=== PATIENT | female | born 1940 | race Caucasian/White ===

== ENCOUNTER 2017-12-12 06:52 | Day surgery (SDC) | payer OTHER ==
[~2017-12-12] VITALS: Ht 167.6 cm; Wt 62.6 kg
[~2017-12-12 06:52] MED LIST: Ascorbic Acid,Ester- PO; Coumadin,Jantoven PO; Feosol PO; LO-DOSE ASPIRIN81 M2 PO; Neurontin PO; Percocet 5/325,Endoc PO; celeBREX PO
[2017-12-12 07:41] VITALS: BP 168/101
[2017-12-12] MEDS ORDERED: LORTAB 5-325 M1 EACH PO (14:42)
[2017-12-12 16:00] VITALS: BP 160/94
[2017-12-12 16:55] VITALS: BP 139/77
== END 2017-12-12 17:25 | disposition home or self-care (01) ==
LOC: SDC 06:52 → NUC 09:00 → SDC 17:25 → NUC 12-14 07:00
DX: C50.212 Malignant neoplasm of upper-inner quadrant of left female breast (principal); Z17.0 Estrogen receptor positive status [ER+]; D50.9 Iron deficiency anemia, unspecified; Z87.891 Personal history of nicotine dependence; Z79.82 Long term (current) use of aspirin; Z80.3 Family history of malignant neoplasm of breast
CPT/HCPCS: 78195; 78999; A9541; J0690; J1100; J1170; J1885; J2405; S0020